=== PATIENT | female | born 1980 | race Caucasian/White ===

== ENCOUNTER 2016-08-13 09:40 | Emergency (ER) | payer BC, OTHER ==
--- NOTE | 2016-08-13 10:17 | UC ---
Respiratory Complaint HPI - HPI Summary HPI Summary: The patient comes in today for: 1. Sore throat, stiff neck, body aches, cough: Onset: Yesterday. Palliative/provocative: Nothing helps her symptoms. Quality: Stabbing throat pain; ache of the body Region: Throat, and shoulders, and chest and arm. Severity: 5/10 for body aches. 7/10 for the throat. Time: Constant. Associated symptoms: Her son was diagnosed as having strep throat two days ago. Fevers: None at home. Vomiting: None. Diarrhea: None. Rhinitis: "Sometimes" Cough: Non-productive. Chest pain: NOne. Dyspnea: None. * - History of Current Complaint Chief Complaint: UCGeneralIllness Stated Complaint: THROAT,CHILLS Time Seen by Provider: 08/13/16 10:08 Hx Obtained From: Patient Hx Last Menstrual Period: 07/19/16 ?: No - Allergies/Home Medications Allergies/Adverse Reactions: Allergies Allergy/AdvReac Type Severity Reaction Status Date / Time Penicillins Allergy Dizziness Verified 08/13/16 09:57 and Swelling Home Medications: Home Medications [id number] [Nyquil Severe Cold/Flu 5-6.25-10-325 mg/15Ml] 30 ml PO Q6H PRN 08/13/16 [History Confirmed 08/13/16] PMH/Surg Hx/FS Hx/Imm Hx Previously Healthy: Yes Endocrine History Of: Denies: Diabetes, Thyroid Disease, Hyperthyroidism, Hypothyroidism, Dyslipidemia Cardiovascular History Of: Denies: Cardiac Disorders, Hypertension, Pacemaker/ICD, Myocardial Infarction , Congestive Heart Failure, Atrial Fibrillation, Deep Vein Thrombosis, Bleeding Disorders Respiratory History Of: Denies: COPD, Asthma, Bronchitis, Pneumonia, Pulmonary Embolism GI/ History Of: Denies: Gastroesophageal Reflux, Ulcer, Gastrointestinal Bleed, Gall Bladder Disease, Kidney Stones, Diverticulitis, Renal Disease, Urosepsis Neurological History Of: Denies: TIA, CVA, Dementia, Seizures, Migraine Psychological History Of: Denies: Anxiety, Depression, Bipolar Disorder, Schizophrenia, Post Traumatic Stress Disorder Cancer History Of: Denies: Lung Cancer, Colorectal Cancer, Breast Cancer, Prostate Cancer, Cervical Cancer Other History Of: Negative For: HIV, Hepatitis B, Hepatitis C, Anticoagulant Therapy - Surgical History Surgical History: Yes Surgery Procedure, Year, and Place: C-Sections, 2007 2008, [place]; [place], 2007, [place]; Cholecystectomy, 1993, [place] - Family History Known Family History: Positive: Cardiac Disease, Hypertension - Social History Occupation: Unemployed Alcohol Use: None Substance Use Type: None Smoking Status (MU): Light Every Day Tobacco Smoker Type: Cigarettes Amount Used/How Often: 1/5 PPD Length of Time of Smoking/Using Tobacco: On and Off since 17 Have You Smoked in the Last Year: Yes Household Exposure Type: Cigarettes - Immunization History Most Recent Influenza Vaccination: April 2016 Review of Systems Constitutional: Negative Skin: Negative Eyes: Negative ENT: Sore Throat, Nasal Discharge Respiratory: Cough Cardiovascular: Negative Gastrointestinal: Negative All Other Systems Reviewed And Are Negative: Yes Physical Exam Triage Information Reviewed: Yes Appearance: Well-Appearing, No Pain Distress, Well-Nourished Vital Signs: Initial Vital Signs Temp 99.2 F 08/13/16 09:54 Pulse 110 08/13/16 09:54 Resp 16 08/13/16 09:54 BP 103/68 08/13/16 09:54 Pulse Ox 100 08/13/16 09:54 Vital Signs Reviewed: Yes Eyes: Positive: Conjunctiva Clear. Negative: Discharge ENT: Positive: Hearing grossly normal. Negative: Pharyngeal erythema, Nasal congestion, Nasal drainage, TM bulging, TM dull, TM red, Tonsillar swelling, Tonsillar exudate Dental: Negative: Gross Decay/Caries @, Dental Fracture @ Neck: Positive: Supple, Nontender, No Lymphadenopathy. Negative: Nuchal Rigidity Respiratory: Positive: Lungs clear, No respiratory distress, No accessory muscle use. Negative: Crackles, Wheezing Cardiovascular: Positive: RRR, No Murmur Abdomen Description: Positive: Nontender, No Organomegaly, Soft. Negative: Distended, Guarding Musculoskeletal: Positive: Strength Intact, ROM Intact Neurological: Positive: Alert, Muscle Tone Normal Psychological: Positive: Age Appropriate Behavior, Consolable Skin: Negative: rashes, breakdown UC Diagnostic Evaluation - Laboratory O2 Sat by Pulse Oximetry: 100 Diagnostic Studies Comment: Strep test: (+) Respiratory Course/Dx - Course Course Of Treatment: Patient told of positive strep test. - Differential Dx/Diagnosis Differential Diagnosis/HQI/PQRI: Bronchitis, Laryngitis, Sinusitis Provider Diagnoses: Upper respiratory infection. Strep throat. Discharge - Discharge Plan Condition: Stable Disposition: HOME Patient Education Materials: Strep Throat (ED) Referrals: Favio Fish MD [Primary Care Provider] - 1 Week (Please see your primary care provider in about a week to see how well you are doing. If you get worse, please be seen sooner.)
[2016-08-13 10:27] VITALS: BP 103/68
== END 2016-08-13 10:36 | disposition home or self-care (01) ==
LOC: UCCORT 09:40
DX: J02.0 Streptococcal pharyngitis (principal); Z88.0 Allergy status to penicillin; F17.210 Nicotine dependence, cigarettes, uncomplicated
CPT/HCPCS: 87651; 99212; G0463

== ENCOUNTER 2017-03-24 09:23 | Emergency (ER) | payer BC ==
[2017-03-24 11:05] VITALS: BP 120/65
--- NOTE | 2017-03-24 11:24 | UC ---
Ear Complaint HPI - HPI Summary HPI Summary: BILATERAL EAR PAIN X 1 DAY. NO FEVER, NO CHILLS WAS SEEN BY PCP ONE DAY AGO FOR SORE THROAT, ON ZPACK FOR POSSIBLE STREP - History of Current Complaint Chief Complaint: UCEar Stated Complaint: EAR PAIN Time Seen by Provider: 03/24/17 11:15 Hx Obtained From: Patient Hx Last Menstrual Period: 01/30/17, states always irregular Onset/Duration: Gradual Onset, Lasting Days - 2, Still Present Severity Initially: Moderate Severity Currently: Moderate Alleviating Factors: Nothing Associated Signs/Symptoms: Positive: URI Symptoms. Negative: Discharge, Hearing Loss, Foreign Body Sensation, Trauma to Ear, Swelling @ - Allergies/Home Medications Allergies/Adverse Reactions: Allergies Allergy/AdvReac Type Severity Reaction Status Date / Time Penicillins Allergy Dizziness Verified 03/24/17 11:05 and Swelling PMH/Surg Hx/FS Hx/Imm Hx Previously Healthy: Yes Other History Of: Negative For: HIV, Hepatitis B, Hepatitis C, Anticoagulant Therapy - Surgical History Surgical History: Yes Surgery Procedure, Year, and Place: C-Sections, 2006 2008, [place]; [place], 2007, [place]; Cholecystectomy, 1993, [place] - Family History Known Family History: Positive: Cardiac Disease, Hypertension - Social History Alcohol Use: None Substance Use Type: None Smoking Status (MU): Former Smoker Type: Cigarettes Amount Used/How Often: 1/5 PPD Length of Time of Smoking/Using Tobacco: On and Off since 17 Have You Smoked in the Last Year: Yes Household Exposure Type: Cigarettes - Immunization History Most Recent Influenza Vaccination: no Review of Systems Constitutional: Negative Skin: Negative Eyes: Negative ENT: Sore Throat, Ear Ache Respiratory: Negative Is Patient Immunocompromised?: No All Other Systems Reviewed And Are Negative: Yes Physical Exam Triage Information Reviewed: Yes Appearance: Well-Appearing, No Pain Distress, Well-Nourished Vital Signs: Initial Vital Signs Temp 98.1 F 03/24/17 11:00 Pulse 89 03/24/17 11:00 Resp 16 03/24/17 11:00 BP 120/65 03/24/17 11:00 Pulse Ox 100 03/24/17 11:00 Vital Signs Reviewed: Yes Eyes: Positive: Conjunctiva Clear ENT: Positive: Normal ENT inspection, Pharyngeal erythema, TMs normal. Negative : Nasal congestion, Nasal drainage, TM bulging, TM dull, TM red Neck: Positive: Supple, Nontender, Enlarged Nodes @ Respiratory: Positive: Chest non-tender, Lungs clear, Normal breath sounds Cardiovascular: Positive: RRR, No Murmur, Pulses Normal Musculoskeletal Exam: Normal Skin Exam: Normal Ear Complaint Course/Dx - Differential Dx/Diagnosis Provider Diagnoses: OTALGIA. PHARYNGITIS Discharge - Discharge Plan Condition: Stable Disposition: HOME Patient Education Materials: Earache (ED) Referrals: Favio Fish MD [Primary Care Provider] - 5 Days Additional Instructions: EUSTACHIAN TUBE DYSFUNCTION CONT. WITH ZPAK INCREASE FLUID, USE OTC NASAL SPRAY FLONASE DAILY
== END 2017-03-24 11:42 | disposition home or self-care (01) ==
LOC: UCCORT 09:23
DX: H92.03 Otalgia, bilateral (principal); J02.9 Acute pharyngitis, unspecified; Z87.891 Personal history of nicotine dependence; Z88.0 Allergy status to penicillin
CPT/HCPCS: 99211; G0463

== ENCOUNTER 2019-05-16 08:38 | Emergency (ER) | payer BC ==
[2019-05-16 09:03] VITALS: BP 119/68
--- NOTE | 2019-05-16 09:18 | UC ---
Skin Complaint HPI - HPI Summary HPI Summary: 38-year-old woman comes in with a chief complaint of a rash. It's on her upper anterior neck just underneath her jaw line bilaterally. There is some redness to it. She also has a bit of a scratchy throat. No difficulty swallowing or breathing. No fevers or chills. It itches when she touches it otherwise does not bother her. She been using the same facial makeup for 8 years. No recent changes in makeup. This is not painful. - History of Current Complaint Chief Complaint: UCSkin Time Seen by Provider: 05/16/19 08:59 Stated Complaint: SKIN COMP Hx Last Menstrual Period: 01/30/17, states always irregular Pain Intensity: 0 - Allergy/Home Medications Allergies/Adverse Reactions: Allergies Allergy/AdvReac Type Severity Reaction Status Date / Time Penicillins Allergy See Comment Verified 05/16/19 08:57 Home Medications: Home Medications Clindamycin/Benzoyl/Emol [id number] [Neuac Kit 1.2-5 %] 1 applic EX DAILY 05/16/19 [ History Confirmed 05/16/19] Folic Acid TAB* [Folvite TAB*] 1 mg PO DAILY 05/16/19 [History Confirmed ] Hydroxychloroquine TAB* [Plaquenil TAB*] 200 mg PO BID 05/16/19 [History Confirmed 05/16/19] Methotrexate TAB* 6 tab PO SEE INSTRUCTIONS 05/16/19 [History Confirmed 05/16/19 ] NIFEdipine ER TAB* [Procardia Xl TAB*] 30 mg PO DAILY 05/16/19 [History Confirmed 05/16/19] Spironolactone TAB* [Aldactone TAB*] 50 mg PO BID 05/16/19 [History Confirmed ] PMH/Surg Hx/FS Hx/Imm Hx Previously Healthy: Yes Other History Of: Negative For: HIV, Hepatitis B, Hepatitis C, Anticoagulant Therapy - Surgical History Surgical History: Yes Surgery Procedure, Year, and Place: C-Sections, 2006 2008, [place]; [place], 2007, [place]; Cholecystectomy, 1993, [place] - Family History Known Family History: Positive: Cardiac Disease, Hypertension - Social History Alcohol Use: None Substance Use Type: None Smoking Status (MU): Former Smoker Type: Cigarettes Amount Used/How Often: 1/5 PPD Length of Time of Smoking/Using Tobacco: On and Off since 17 Have You Smoked in the Last Year: Yes Household Exposure Type: Cigarettes - Immunization History Most Recent Influenza Vaccination: no Review of Systems All Other Systems Reviewed And Are Negative: Yes Constitutional: Positive: Negative Skin: Positive: Other - see hpi Eyes: Positive: Negative ENT: Positive: Sore Throat Respiratory: Positive: Negative Cardiovascular: Positive: Negative Gastrointestinal: Positive: Negative Motor: Positive: Negative Neurovascular: Positive: Negative Musculoskeletal: Positive: Negative Neurological: Positive: Negative Psychological: Positive: Negative Is Patient Immunocompromised?: Yes - on methotrexate and plaquinil Physical Exam Triage Information Reviewed: Yes Appearance: Well-Appearing, No Pain Distress, Well-Nourished Vital Signs: Initial Vital Signs Temp 98.0 F 05/16/19 09:00 Pulse 79 05/16/19 09:00 Resp 15 05/16/19 09:00 BP 119/68 05/16/19 09:00 Pulse Ox 100 05/16/19 09:00 Vital Signs Reviewed: Yes Eye Exam: Normal Eyes: Positive: Conjunctiva Clear ENT: Positive: Pharynx normal. Negative: Muffled voice, Hoarse voice Neck: Positive: Supple Respiratory: Positive: No respiratory distress Musculoskeletal: Positive: Strength Intact, ROM Intact Neurological: Positive: Alert, Muscle Tone Normal Psychological: Positive: Age Appropriate Behavior Skin: Positive: Other - On the upper anterior neck superior to the Patrick's apple and inferior to the jawline bilaterally there is some erythema with punctate areas that are darker color. No obvious swelling. It is blanching. Course/Dx - Course Course Of Treatment: Exact cause of the rash at this time is undetermined. We'll treat with doxycycline for the Possibility of increased acne or other infection. Patient is on methotrexate and Plaquenil. Oral pharynx is open normal voice. The possibility of a contact dermatitis will use topical hydrocortisone and over-the -counter Benadryl as needed if helpful. Patient is to follow-up with her primary care doctor if not completely improved get reevaluated sooner if worse or any questions or concerns. - Diagnoses Provider Diagnosis: Rash Discharge ED - Sign-Out/Discharge Documenting (check all that apply): Patient Departure All imaging exams completed and their final reports reviewed: No Studies - Discharge Plan Condition: Stable Disposition: HOME Prescriptions: DOXYcycline CAP(*) [DOXYcycline 100MG CAP(*)] 100 mg PO BID #20 cap Hydrocortisone 1% CREAM* [Hytone Cream 1%*] 1 applic TOPICAL BID #1 tube Patient Education Materials: Acute Rash (ED) Referrals: Favio Fish MD [Primary Care Provider] - Additional Instructions: FOLLOW UP WITH YOUR DOCTOR IF NOT COMPLETELY IMPROVED. GET REEVALUATED SOONER IF NOT IMPROVING OR WORSE; FEVER, YOU FEEL ILL, DIFFICULTY SWALLOWING OR BREATHING OR ANY QUESTIONS OR CONCERNS. - Billing Disposition and Condition Condition: STABLE Disposition: Home
== END 2019-05-16 09:22 | disposition home or self-care (01) ==
LOC: UCCORT 08:38
DX: R21 Rash and other nonspecific skin eruption (principal); Z88.0 Allergy status to penicillin; Z87.891 Personal history of nicotine dependence
CPT/HCPCS: 99212; G0463